=== PATIENT | female | born 1950 ===

== ENCOUNTER 2018-05-03 11:33 | Emergency (ER) | payer MEDICAID, MEDICARE, OTHER ==
[2018-05-03 11:36] VITALS: RESP 16; BMI 27.4
--- NOTE | 2018-05-03 12:45 | ED PDOC ---
Upper Extremity Pain/Injury Time Seen by Provider: 05/03/18 11:43 Chief Complaint (Nursing): Upper Extremity Problem/Injury Chief Complaint (Provider): Bilateral shoulder, arm, back pain History Per: Patient History/Exam Limitations: no limitations Onset/Duration Of Symptoms: Days (x3 weeks) Current Symptoms Are (Timing): Still Present Additional Complaint(s): 68 year old female presents to the emergency department via EMS complaining of bilateral shoulder, back, and arm pain onset three weeks ago. Patient states she was recently evaluated at [facility] where she had XRs and blood work, had a shot and was discharged. Today, she is also concerned about her blood pressure being high, despite being compliant with her medication. Denies chest pain and shortness of breath. PMD: Polly Grant Past Medical History Reviewed: Historical Data, Nursing Documentation, Vital Signs Vital Signs: Last Vital Signs Temp 98.5 F 05/03/18 11:35 Pulse 74 05/03/18 11:35 Resp 16 05/03/18 11:35 BP 180/90 H 05/03/18 11:35 Pulse Ox 98 05/03/18 11:35 - Medical History PMH: Arthritis, HTN, Peripheral Edema - Surgical History Surgical History: Appendectomy - Family History Family History: States: Hypertension - Social History Current smoker - smoking cessation education provided: No Alcohol: None Drugs: Denies - Home Medications Home Medications: Ambulatory Orders Medication Instructions Recorded Cyclobenzaprine [Cyclobenzaprine 10 mg PO TID PRN #15 tab 05/03/18 HCl] Naproxen [Naprosyn] 500 mg PO BID PRN #15 tablet 05/03/18 - Allergies Allergies/Adverse Reactions: Allergies Allergy/AdvReac Type Severity Reaction Status Date / Time No Known Allergies Allergy Verified 04/05/16 20:22 Review of Systems ROS Statement: Except As Marked, All Systems Reviewed And Found Negative Cardiovascular: Negative for: Chest Pain Respiratory: Negative for: Shortness of Breath Musculoskeletal: Positive for: Shoulder Pain (bilateral), Arm Pain (bilateral), Back Pain (bilateral) Physical Exam - Reviewed Nursing Documentation Reviewed: Yes Vital Signs Reviewed: Yes - Physical Exam Appears: Positive for: In Acute Distress (moderate painful) Head Exam: Positive for: ATRAUMATIC, NORMOCEPHALIC Skin: Positive for: Normal Color, Warm, Dry Eye Exam: Positive for: Normal appearance Neck: Negative for: Normal (tenderness to bilateral neck) Cardiovascular/Chest: Positive for: Regular Rate, Rhythm. Negative for: Murmur Respiratory: Positive for: Normal Breath Sounds. Negative for: Accessory Muscle Use, Respiratory Distress Gastrointestinal/Abdominal: Positive for: Normal Exam, Soft. Negative for: Tenderness Extremity: Positive for: Tenderness (bilateral posterior shoulders and bilateral arms) Neurologic/Psych: Positive for: Alert, Oriented. Negative for: Motor/Sensory Deficits - Laboratory Results Result Diagrams: 05/03/18 12:40 05/03/18 12:40 - ECG ECG: Positive for: Interpreted By Me, Viewed By Me ECG Rhythm: Positive for: Sinus Rhythm (at 65), Left Bundle Branch Block Interpretation Of ECst degree AV block (old compared to 04/06/16) O2 Sat by Pulse Oximetry: 98 (RA) Pulse Ox Interpretation: Normal Medical Decision Making Medical Decision Making: Initial Impression: Musculoskeletal pain, hypertension Time: 12:27 Initial Plan: --CT C-spine w/o constrast --EKG --CMP --Urine dipstick --CBC with differential --PT / PTT --Chest XR --Morphine 2mg IV --Urinalysis 14:[address] FINDINGS: VERTEBRAE: No fracture. Rotary scoliosis No destructive bony lesion. DISCS/SPINAL CANAL/NEURAL FORAMINA: C5-6 degenerative change. Uncovertebral hypertrophy at multiple levels PARASPINAL SOFT TISSUES: Unremarkable. OTHER FINDINGS: Incompletely visualize/ characterize nodule left thyroid lobe. Elective ultrasound advised IMPRESSION: No acute findings related to/accounting for the clinical presentation. Assessment of intervertebral discs and exiting neural foramen difficult based on rotary scoliosis 14:40 Patient states she is feeling better upon reevaluation. Scribe Attestation: Documented by Brandi Dee, acting as a scribe for Peg Amaro MD. Provider Scribe Attestation: All medical entries made by the Scribe were at my direction and personally dictated by me. I have reviewed the chart and agree that the record accurately reflects my personal performance of the history, physical exam, medical decision making, and the department course for this patient. I have also personally directed, reviewed, and agree with the discharge instructions and disposition. Disposition - Clinical Impression Clinical Impression: Neck pain, bilateral, Shoulder pain, bilateral - Disposition Condition: IMPROVED Additional Instructions: FOLLOW-UP WITH PMD WITHIN 2 DAYS FOR REEVALUATION. Prescriptions: Cyclobenzaprine [Cyclobenzaprine HCl] 10 mg PO TID PRN #15 tab PRN Reason: Pain Naproxen [Naprosyn] 500 mg PO BID PRN #15 tablet PRN Reason: Pain, Moderate (4-7) Instructions: Neck Pain, Shoulder Pain (DC) Forms: [facility] (Upper Sorbian) Print Language: SAMI
[2018-05-03 12:51] LABS: BASO % 0.5 % (0.0-2.0); EOS # 0.1 K/uL (0.0-0.7); EOS % 1.6 % (0.0-4.0); HEMOGLOBIN 14.5 g/dL (12.0-16.0); LYMPH # 1.4 K/uL (1.0-4.3); LYMPH % 22.5 % (20.0-40.0); MEAN CELL VOLUME 84.5 fl (81.0-99.0); MEAN CORPUSCULAR HEMOGLOBIN 28.7 pg (27.0-31.0); MEAN PLATELET VOLUME 8.1 fl (7.2-11.7); MONO # 0.6 K/uL (0.0-0.8); MONO % 9.3 % (0.0-10.0); NEUT # 4.2 K/uL (1.8-7.0); NEUT % 66.1 % (50.0-75.0); RBC 5.05 Mil/uL (3.80-5.20); RED CELL DISTRIBUTION WIDTH 14.5 % (11.5-14.5); WHITE BLOOD COUNT 6.4 K/uL (4.8-10.8)
[2018-05-03 12:58] LABS: ALB/GLOB RATIO 1.3 (1.0-2.1); ALBUMIN 4.2 g/dL (3.5-5.0); ALT/SGPT 34 U/L (9-52); AST/SGOT 35 U/L (14-36); BLOOD UREA NITROGEN 19 mg/dl (7-17); CALCIUM 9.7 mg/dL (8.4-10.2); GFR AFRICAN-AMERICAN > 60; GFR NON-AFRICAN AMERICAN > 60
[2018-05-03 13:02] LABS: PARTIAL THROMBOPLASTIN TIME 31.1 Seconds (25.6-37.1); PROTHROMBIN TIME 10.5 Seconds (9.8-13.1)
--- NOTE | 2018-05-03 14:27 | CT ---
PROCEDURE: CT Cervical Spine without contrast HISTORY: Bilateral arm Pain. No history of recent/ related trauma provided COMPARISON: None available. TECHNIQUE: Axial computed tomography images were obtained of the cervical spine without the use of intravenous contrast. Coronal and sagittal reformatted images were created and reviewed. Radiation dose: Total exam DLP = 523.46 mGy-cm. This CT exam was performed using one or more of the following dose reduction techniques: Automated exposure control, adjustment of the mA and/or kV according to patient size, and/or use of iterative reconstruction technique. FINDINGS: VERTEBRAE: No fracture. Rotary scoliosis No destructive bony lesion. DISCS/SPINAL CANAL/NEURAL FORAMINA: C5-6 degenerative change. Uncovertebral hypertrophy at multiple levels PARASPINAL SOFT TISSUES: Unremarkable. OTHER FINDINGS: Incompletely visualize/ characterize nodule left thyroid lobe. Elective ultrasound advised IMPRESSION: No acute findings related to/accounting for the clinical presentation. Assessment of intervertebral discs and exiting neural foramen difficult based on rotary scoliosis
[2018-05-03 14:54] LABS: SQUAMOUS EPITHIAL 2 /hpf (0-5); URINE BACTERIA OCC (<OCC); URINE BILIRUBIN NEGATIVE (NEGATIVE); URINE BLOOD NEGATIVE (NEGATIVE); URINE CLARITY CLEAR (Clear); URINE COLOR STRAW (YELLOW); URINE GLUCOSE (UA) NEG (Normal); URINE LEUKOCYTE ESTERASE NEG Leu/uL (Negative); URINE PROTEIN NEGATIVE (NEGATIVE); URINE UROBILINOGEN 0.2-1.0 mg/dL (0.2-1.0)
[2018-05-03] MEDS ORDERED: Oxycodone/Acetaminophen 5/325 mg Tab PO STA (15:11)
[2018-05-03 15:32] VITALS: BP 145/89; PULSE 75; TEMP 98.1; O2SAT 100
--- NOTE | 2018-05-03 18:34 | RAD ---
HISTORY: CP COMPARISON: No prior. TECHNIQUE: Chest PA and lateral FINDINGS: LUNGS: Diminished history volume may be crowding of the bronchovascular markings which are favored over bilateral basilar infiltrates. PLEURA: No significant pleural effusion identified. No pneumothorax apparent. CARDIOVASCULAR: Stable cardiomegaly. No pulmonary vascular congestion. OSSEOUS STRUCTURES: No significant abnormalities. VISUALIZED UPPER ABDOMEN: Normal. OTHER FINDINGS: None. IMPRESSION: Crowding of the bronchovascular markings is favored over limited bibasilar early infiltrates. Clinically correlate further. Stable cardiomegaly. No pulmonary vascular congestion.
--- NOTE | 2018-05-04 11:39 | CARD ---
APPROVED REPORT EKG Measurement Heart [id number] <Conclusion> Sinus rhythm with 1st degree AV block Left bundle branch block Abnormal ECG
== END 2018-05-03 15:33 | disposition home or self-care (01) ==
LOC: H.ER 11:33
DX: M54.2 Cervicalgia (principal); M25.512 Pain in left shoulder; M25.511 Pain in right shoulder; I10 Essential (primary) hypertension
CPT/HCPCS: 71046; 72125; 80053; 81003; 85025; 85610; 85730; 93005; 96374; 99283; J2270